=== PATIENT | female | born 1980 | race Caucasian/White ===

== ENCOUNTER 2024-03-22 18:50 | Outpatient (REF) | payer MEDICAID, SELFPAY ==
--- NOTE | 2024-03-22 15:15 | PAPFT_PTH ---
PATIENT: Bina Alcaraz LOC: [facility] U#:[id number] AGE/SX: 43/F ROOM: RE03/22/[address]: Melinda Mejia APRN : 1980 BED: DIS: 03/22/2024 SPEC #: [id number] RECD: 03/23/24 12:50 STATUS: RONAK RETiff #: [id number] VIC: 03/22/24 15:[address]: Melinda Mejia DEPT: [facility] Cytology RECD BY: Karo Lindsay Tissues: 1 - CX/ENDOCX FOR PAP SMEARS Procedures: PAP THIN PREP/[facility] Screening HPV DNA PROBE Comments: [id number]
[2024-03-24 14:42] LABS: Chlamydia Result Negative (Negative); GC Result Negative (Negative)
== END 2024-03-22 18:51 | disposition home or self-care (01) ==
LOC: LBN 18:50
PROVIDERS: PCP Nurse Practitioner Adult Health; Visit Provider Nurse Practitioner Adult Health
DX: Z11.3 Encounter for screening for infections with a predominantly sexual mode of transmission (principal); Z12.4 Encounter for screening for malignant neoplasm of cervix; Z11.51 Encounter for screening for human papillomavirus (HPV)
CPT/HCPCS: 87491; 87591; 88142; 87480; 87510; 87624; 87660